=== PATIENT | male | born 1945 | race Caucasian/White ===

== ENCOUNTER 2018-09-13 05:21 | Inpatient (IN) | payer MEDICARE, BC ==
[2018-09-13] MEDS: LACTATED RINGER'S 1,000 ML IV* (06:24)
[2018-09-13] MEDS: CEFAZOLIN 2 GM/50 ML (PMX) 50 ML IVPB (06:24)
[2018-09-13] MEDS ORDERED: EPHEDrine SULFATE 50 MG/5 ML SYG IV (07:00)
[2018-09-13] MEDS ORDERED: MEPERIDINE 25 MG INJ IV (07:00)
[2018-09-13] MEDS ORDERED: hydrALAzine 20 MG INJ IV (07:00)
[2018-09-13] MEDS ORDERED: OXYCODONE/ACETAMINOPHEN (5/325) TAB PO ×2 (07:00)
[2018-09-13] MEDS ORDERED: FENTAnyl 50 MCG/ML VIAL IV ×2 (07:00)
[2018-09-13] MEDS ORDERED: LABETALOL HCL 20MG INJ IV (07:00)
[2018-09-13] MEDS ORDERED: METOCLOPRAMIDE 10 MG INJ IV (07:00)
[2018-09-13] MEDS ORDERED: DIPHENHYDRAMINE 50 MG INJ IV (07:00)
[2018-09-13] MEDS ORDERED: ALBUTEROL 0.083% (NEB) 2.5 MG/3 ML AMP HHN (07:00)
[2018-09-13] MEDS ORDERED: ETOMIDATE 20 MG INJ (07:02)
[2018-09-13] MEDS ORDERED: ROCURONIUM 50 MG INJ (07:02)
[2018-09-13] MEDS ORDERED: SUCCINYLCHOLINE CHLORIDE 100 MG/5 ML SYG IV (07:02)
[2018-09-13] MEDS ORDERED: MIDAZOLAM 1 MG/ML 2 ML INJ (07:03)
[2018-09-13] MEDS ORDERED: ACETAMINOPHEN 1000MG/100ML IV 100 ML (07:11)
[2018-09-13] MEDS ORDERED: PHENYLephrine (100 MCG/ML) 5ML SYG ×2 (07:11→09:01)
[2018-09-13] MEDS ORDERED: METOCLOPRAMIDE 10 MG INJ (07:11)
[2018-09-13] MEDS ORDERED: ONDANSETRON 4 MG INJ (07:11)
[2018-09-13] MEDS ORDERED: DEXAMETHASONE 4 MG/ML 1 ML INJ (07:11)
[2018-09-13] MEDS ORDERED: LABETALOL HCL 20MG INJ (07:26)
[2018-09-13] MEDS ORDERED: hydrALAzine 20 MG INJ (07:26)
[2018-09-13] MEDS ORDERED: GELATIN SIZE 100 SPONGE (07:40)
[2018-09-13] MEDS: POLYMYXIN/BACITRACIN 1L IRRIG (07:40)
[2018-09-13] MEDS: BUPIVACAINE 0.25% (MPF) 30 ML INJ (07:40)
[2018-09-13] MEDS ORDERED: THROMBIN 5000 UNIT VIAL ×2 (07:40→09:56)
[2018-09-13] MEDS ORDERED: CEFAZOLIN 1 GM INJ (10:19)
[2018-09-13] MEDS ORDERED: SUGAMMADEX SODIUM 200 MG/2 ML VIAL IV (10:35)
[2018-09-13] MEDS ORDERED: ACETAMINOPHEN 325 MG TAB PO (11:00)
[2018-09-13] MEDS ORDERED: AL HYDROX/MG HYDROX/SIMETH 30 ML CUP PO (11:00)
[2018-09-13] MEDS ORDERED: TRIMETHOBENZAMIDE 100 MG/ML VIAL IM (11:00)
[2018-09-13] MEDS ORDERED: HYDROCODONE/APAP (5/325) TAB PO (11:00)
[2018-09-13] MEDS ORDERED: NACL 0.9% 3 ML SYG IV (11:00)
[2018-09-13] MEDS ORDERED: DIAZEPAM 5 MG TAB PO (11:00)
[2018-09-13] MEDS ORDERED: DIPHENHYDRAMINE 50 MG CAP PO (11:00)
[2018-09-13] MEDS ORDERED: DIAZEPAM 5 MG/ML SYG IM (11:00)
[2018-09-13] MEDS ORDERED: PROCHLORPERAZINE 10 MG TAB PO (11:00)
[2018-09-13] MEDS ORDERED: NALOXONE (0.4 MG/ML) INJ IV (11:00)
[2018-09-13] MEDS ORDERED: CEPASTAT LOZENGE MT (11:00)
[2018-09-13] MEDS: HYDROmorphONE 0.2 MG/ML PCA IV (11:18)
[2018-09-13] MEDS: FENTAnyl 50 MCG/ML VIAL IV (11:22)
[2018-09-13] MEDS: ONDANSETRON 4 MG INJ IV ×2 (11:22→14:49)
[2018-09-13] MEDS: CEFAZOLIN 1 GM/50 ML (PMX) 50 ML IVPB ×2 (12:05→18:23)
[2018-09-13] MEDS ORDERED: ALBUTEROL HFA 8 GM INHALER INH (14:00)
[2018-09-13] MEDS: DEXTROSE 5%-0.45% NACL 1,000 ML IV ×2 (14:49→20:54)
[2018-09-13] MEDS ORDERED: ATORVASTATIN 40 MG TAB PO (21:00)
[2018-09-13] MEDS: ATORVASTATIN 40 MG TAB PO (21:35)
[2018-09-13] MEDS: RANITIDINE 150 MG TAB PO (21:35)
[2018-09-14] MEDS: CEFAZOLIN 1 GM/50 ML (PMX) 50 ML IVPB ×2 (00:09→05:41)
[2018-09-14] MEDS: DEXTROSE 5%-0.45% NACL 1,000 ML IV (00:11)
[2018-09-14] MEDS: ZOLPIDEM 5 MG TAB PO (02:18)
[2018-09-14 05:03] LABS: HEMATOCRIT 30.2 % (42.0-52.0); HEMOGLOBIN 9.8 g/dl (14.0-18.0)
[2018-09-14 05:25] LABS: ANION GAP 9 (5-13); BLOOD UREA NITROGEN 13 mg/dl (7-20); CALCIUM 8.5 mg/dl (8.4-10.2); CARBON DIOXIDE 24 mmol/L (21-31); CHLORIDE 106 mmol/L (97-110); CREATININE 0.68 mg/dl (0.61-1.24); GLUCOSE 118 mg/dl (70-220); POTASSIUM 3.8 mmol/L (3.5-5.1); SODIUM 139 mmol/L (135-144)
[2018-09-14] MEDS ORDERED: BETHANECHOL 25 MG TAB PO (08:00)
[2018-09-14] MEDS: BETHANECHOL 25 MG TAB PO (08:37)
[2018-09-14] MEDS: DOCUSATE SODIUM 100 MG CAP PO (08:41)
[2018-09-14] MEDS: ASCORBIC ACID 500 MG TAB PO (08:41)
[2018-09-14] MEDS: FERROUS SULFATE (EC) 325 MG TAB PO ×2 (08:41→13:00)
[2018-09-14] MEDS: RANITIDINE 150 MG TAB PO (08:41)
[2018-09-14] MEDS: LOSARTAN 50 MG TAB PO (08:42)
[2018-09-14] MEDS: METOPROLOL (XL) 25 MG TAB PO (08:42)
[2018-09-14] MEDS: HYDROCODONE/APAP (5/325) TAB PO (09:33)
[2018-09-14 09:57] LABS: ADD UMIC YES; UR ASCORBIC ACID NEGATIVE (NEGATIVE); UR BACTERIA FEW /HPF (NONE SEEN); UR BILIRUBIN (Dip) NEGATIVE (NEGATIVE); UR BLOOD (Dip) 3+ mg/dL (NEGATIVE); UR CLARITY SLIGHTLY CLOUDY (CLEAR); UR COLOR RED (YELLOW); UR GLUCOSE (Dip) NEGATIVE (NEGATIVE); UR KETONES (Dip) NEGATIVE (NEGATIVE); UR LEUKOCYTE ESTERASE (Dip) TRACE Leu/ul (NEGATIVE); UR MUCUS FEW /HPF (NONE SEEN); UR NITRITE (Dip) NEGATIVE (NEGATIVE); UR RBC > 182 /HPF (0-5); UR SPECIFIC GRAVITY (Dip) 1.012 (1.003-1.030); UR TOTAL PROTEIN (Dip) 2+ mg/dl (NEGATIVE); UR UROBILINOGEN (Dip) NEGATIVE (NEGATIVE); UR WBC > 182 /HPF (0-5)
== END 2018-09-14 17:40 | disposition home or self-care (01) | DRG 520 ==
LOC: REC 05:21 → MS1 13:38
PROC: 0SB20ZZ Excision of Lumbar Vertebral Disc, Open Approach (ICD-10-PCS; principal; 2018-09-13 07:00)
PROC: 01NB0ZZ Release Lumbar Nerve, Open Approach (ICD-10-PCS; 2018-09-13 07:00)
DX: M51.26 Other intervertebral disc displacement, lumbar region (principal); M48.061 Spinal stenosis, lumbar region without neurogenic claudication; I25.10 Atherosclerotic heart disease of native coronary artery without angina pectoris; Z95.1 Presence of aortocoronary bypass graft; I10 Essential (primary) hypertension; E78.5 Hyperlipidemia, unspecified; J44.9 Chronic obstructive pulmonary disease, unspecified
CPT/HCPCS: 72020; 80048; 81001; 85014; 85018; 86850; 86900; 86901; 86920; 87086; 88304; 88311; 97116; 97162; 97530